=== PATIENT | female | born 1965 | race Caucasian/White ===

== ENCOUNTER → 2017-06-17 | Outpatient (CLI) | payer OTHER | END | disposition home or self-care (01) | LOC: MAMO-SONO 01-16 10:45 → SONOGRAMA 10:31 | DX: D25.1 Intramural leiomyoma of uterus (principal); N85.8 Other specified noninflammatory disorders of uterus ==

== ENCOUNTER 2017-11-19 10:35 | Outpatient (CLI) | payer OTHER | END 2017-11-19 10:37 | disposition home or self-care (01) | LOC: RAD 10:35 | DX: E78.2 Mixed hyperlipidemia (principal); N60.02 Solitary cyst of left breast; N60.01 Solitary cyst of right breast; N64.4 Mastodynia; R87.810 Cervical high risk human papillomavirus (HPV) DNA test positive; N92.4 Excessive bleeding in the premenopausal period; R10.2 Pelvic and perineal pain; D25.2 Subserosal leiomyoma of uterus; E04.1 Nontoxic single thyroid nodule; M05.752 Rheumatoid arthritis with rheumatoid factor of left hip without organ or systems involvement ==

== ENCOUNTER 2017-12-30 05:30 | Day surgery (SDC) | payer OTHER ==
[~2017-12-30 05:30] MED LIST: DIOVAN40 MG PO; LIPITOR20 MG PO; NEURONTIN300 MG PO; SIMPONI50 MG/0.5
[2017-12-30] MEDS ORDERED: ULTRACET PO (10:03)
[2017-12-30] MEDS ORDERED: CELEBREX200MG PO (10:03)
== END 2017-12-30 12:50 | disposition home or self-care (01) ==
LOC: CIR.AMB 05:30
DX: N70.11 Chronic salpingitis (principal); N73.6 Female pelvic peritoneal adhesions (postinfective)

== ENCOUNTER 2018-09-12 09:04 | Outpatient (CLI) | payer OTHER ==
[~2018-09-12 09:04] MED LIST changes: +CELEBREX200MG PO; +ULTRACET PO
== END 2018-09-12 09:19 | disposition home or self-care (01) ==
LOC: SONOGRAMA 09:04 → MAMO-SONO 09:45
DX: E04.8 Other specified nontoxic goiter (principal)

== ENCOUNTER 2018-11-30 13:13 | Outpatient (CLI) | payer OTHER | END 2018-11-30 13:15 | disposition home or self-care (01) | LOC: NUCLEAR 13:13 | DX: M81.0 Age-related osteoporosis without current pathological fracture (principal) ==

== ENCOUNTER 2018-11-30 14:05 | Outpatient (CLI) | payer OTHER | END 2018-11-30 14:09 | disposition home or self-care (01) | LOC: LAB 14:05 | DX: E79.0 Hyperuricemia without signs of inflammatory arthritis and tophaceous disease (principal) ==

== ENCOUNTER → 2019-06-07 | Outpatient (CLI) | payer OTHER | END | disposition home or self-care (01) | LOC: RAD 08:31 | DX: J44.9 Chronic obstructive pulmonary disease, unspecified (principal) ==

== ENCOUNTER 2019-06-20 07:32 | Outpatient (CLI) | payer OTHER | END 2019-06-20 08:09 | disposition home or self-care (01) | LOC: SONOGRAMA 07:32 | DX: E04.1 Nontoxic single thyroid nodule (principal); M05.79 Rheumatoid arthritis with rheumatoid factor of multiple sites without organ or systems involvement ==

== ENCOUNTER 2020-01-22 10:14 | Outpatient (CLI) | payer OTHER ==
[~2020-01-22] VITALS: Ht 157.5 cm; Wt 60.8 kg
== END 2020-01-22 19:27 | disposition home or self-care (01) ==
LOC: OFIC 805 10:14
PROVIDERS: ATTEND Otolaryngology
DX: H69.93 Unspecified Eustachian tube disorder, bilateral (principal); H93.8X3 Other specified disorders of ear, bilateral; R09.81 Nasal congestion; K21.9 Gastro-esophageal reflux disease without esophagitis; H90.3 Sensorineural hearing loss, bilateral

== ENCOUNTER 2020-10-09 14:49 | Outpatient (CLI) | payer OTHER | END 2020-10-09 15:33 | disposition home or self-care (01) | LOC: OFIC 805 14:49 | PROVIDERS: ATTEND Otolaryngology Otology & Neurotology | DX: J32.0 Chronic maxillary sinusitis (principal); R09.81 Nasal congestion ==

== ENCOUNTER 2021-04-15 10:49 | Outpatient (CLI) | payer OTHER | END 2021-04-15 11:11 | disposition home or self-care (01) | LOC: RAD 10:49 | PROVIDERS: ATTEND Internal Medicine Rheumatology | DX: R07.89 Other chest pain (principal); M05.79 Rheumatoid arthritis with rheumatoid factor of multiple sites without organ or systems involvement ==